=== PATIENT | female | born 1995 | race Caucasian/White ===

== ENCOUNTER 2021-09-02 04:59 | Inpatient (IN) | payer OTHER ==
[~2021-09-02] VITALS: Ht 152.4 cm; Wt 96.2 kg
[2021-09-02 05:46] LABS: HEMOGLOBIN 11.1 gm/dl (12.3-15.3); RED BLOOD COUNT 3.9 M/UL (4.00-5.10); WHITE BLOOD COUNT 7.4 K/UL (4.5-11.0)
[2021-09-02] MEDS ORDERED: PRENATABS FA T1 EACH PO (06:14)
[2021-09-02] MEDS ORDERED: IBUPROFEN800 MG PO (09:50)
[2021-09-02] MEDS ORDERED: HEMOCYTE324 MG PO (09:50)
[2021-09-02] MEDS ORDERED: PERCOCET 5/325 T1 EA PO (09:50)
[2021-09-02] MEDS ORDERED: COLACE100 MG PO (09:50)
[2021-09-03 05:45] LABS: HEMOGLOBIN 9.3 gm/dl (12.3-15.3)
== END 2021-09-04 11:53 | disposition home or self-care (01) | DRG 788 ==
LOC: OB 04:59
PROVIDERS: ADMIT Obstetrics & Gynecology
PROC: 10D00Z1 Extraction of Products of Conception, Low, Open Approach (ICD-10-PCS; principal; 2021-09-02 07:30)
DX: O36.63X0 Maternal care for excessive fetal growth, third trimester, not applicable or unspecified (principal); Z3A.39 39 weeks gestation of pregnancy; Z37.0 Single live birth; O34.211 Maternal care for low transverse scar from previous cesarean delivery; N85.8 Other specified noninflammatory disorders of uterus; Z90.49 Acquired absence of other specified parts of digestive tract; Z83.3 Family history of diabetes mellitus; Z82.49 Family history of ischemic heart disease and other diseases of the circulatory system; Z28.310 Unvaccinated for COVID-19; Z87.891 Personal history of nicotine dependence
CPT/HCPCS: 36415; 36600; 81001; 82800; 85014; 85018; 85025; C9113; J0690; J1200; J1885; J2274; J2405; J2590; J2795; J3010; J3430; J7120